=== PATIENT | female | born 1995 | race Native Hawaiian/Other Pacific Islander ===

== ENCOUNTER 2018-07-19 08:53 | Outpatient (CLI) | payer BC | END 2018-07-19 19:24 | disposition home or self-care (01) | LOC: US 08:53 | DX: R74.8 Abnormal levels of other serum enzymes (principal) ==

== ENCOUNTER 2019-08-10 23:14 | Emergency (ER) | payer BC ==
[~2019-08-10] VITALS: Ht 180.3 cm; Wt 135.2 kg
[2019-08-11 00:15] VITALS: BP 122/78; TEMP 98.2
== END 2019-08-11 00:15 | disposition home or self-care (01) ==
LOC: ED 23:14
DX: F41.1 Generalized anxiety disorder (principal); G47.00 Insomnia, unspecified
CPT/HCPCS: 93005; 96372; 99283; J2060

== ENCOUNTER 2020-01-06 12:54 | Outpatient (CLI) | payer BC, OTHER | END 2020-01-06 19:23 | disposition home or self-care (01) | LOC: LAB 12:54 | DX: R53.83 Other fatigue (principal); R50.9 Fever, unspecified | CPT/HCPCS: 87635; G2023; U00003 ==

== ENCOUNTER 2020-12-04 15:18 | Outpatient (CLI) | payer BC | END 2020-12-04 19:22 | disposition home or self-care (01) | LOC: MRI 15:18 | PROVIDERS: ATTEND Internal Medicine | DX: M54.2 Cervicalgia (principal); E11.9 Type 2 diabetes mellitus without complications; R51.9 Headache, unspecified ==

== ENCOUNTER 2021-11-05 08:35 | Outpatient (CLI) | payer BC | END 2021-11-05 20:31 | disposition home or self-care (01) | LOC: US 08:35 | PROVIDERS: ATTEND Internal Medicine | DX: R94.5 Abnormal results of liver function studies (principal) ==

== ENCOUNTER 2022-08-09 11:08 | Outpatient (CLI) | payer BC | END 2022-08-09 19:38 | disposition home or self-care (01) | LOC: US 11:08 | PROVIDERS: ATTEND Otolaryngology | DX: H93.A1 Pulsatile tinnitus, right ear (principal) ==